=== PATIENT | male | born 1935 | race Caucasian/White ===

== ENCOUNTER 2016-12-12 20:38 | Emergency (ER) | payer OTHER ==
[2016-12-12 20:47] VITALS: PULSE 84; TEMP 98.4; O2SAT 95
[2016-12-12 21:15] VITALS: RESP 16
--- NOTE | 2016-12-12 21:30 | EDPHY ---
H & P Stated Complaint: episode of cofusion this am Source: Patient Exam Limitations: No limitations - Personal History Current Tetanus Diphtheria and Acellular Pertussis (TDAP): Unsure - Medical/Surgical History Hx Asthma: No Hx Chronic Respiratory Disease: No Hx Diabetes: No Hx Cardiac Disease: No Hx Renal Disease: No Hx Cirrhosis: No Hx Alcoholism: No Hx HIV/AIDS: No Hx Splenectomy or Spleen Trauma: No Other PMH: hypertension - Social History Smoking Status: Never smoked HPI/ROS: CHIEF COMPLAINT: confusion, difficulty with speech HISTORY OF PRESENT ILLNESS: at approximately 3:00 p.m. today, the patient notes a several minute duration of confusion. He says he had difficulty getting words out of his mouth but he was aware of this. It lasted for several minutes and resolved spontaneously. There is no headache. He has had no fever or chills. No neck pain or stiffness. No urinary complaints. No chest pain or shortness of breath. No abdominal pain. No history of TIA or stroke in the past. Does have hypertension. No diabetes. No coronary artery disease. Does not smoke. No other associated complaints or modifying factors. He is completely asymptomatic at time of my examination. REVIEW OF SYSTEMS: Ten systems reviewed and are negative unless otherwise noted in the HPI EXAMINATION General Appearance: Alert, no distress Head: normocephalic, atraumatic Eyes: Pupils equal and round, no conjunctival pallor or injection ENT, Mouth: Mucous membranes moist Neck: Normal inspection, supple, non-tender Respiratory: Lungs are clear to auscultation Cardiovascular: Regular rate and rhythm Gastrointestinal: Abdomen is soft and nontender Back: non-tender, no bony abnormalities Neurological: A&O, Cranial nerves 2-12 grossly intact. Strength is 5/5 in all extremities. No pronator drift. Negative Romberg. Showed scale is 0. Skin: Warm and dry, no rash Extremities: Non-tender, no pedal edema Psychiatric: Mood and affect normal DIFFERENTIAL DIAGNOSES: Including but not limited to TIA, stroke, the dex, confusion, dizziness, near- syncope. MDM: 21:26 Symptoms that suggest the patient had a TIA today, including expressive aphasia. The patient is completely resolved at this time. His stroke scale is 0. He has no headache. No neck pain or stiffness. No fever or chills. No chest pain shortness of breath. Completely intact neuro examination. We had a very lengthy discussion regarding the workup we recommend here, but he has respectfully declined. We did discuss risks, benefits and alternatives. He is awake and alert. He is not altered in any way. He is capable of understanding the risks and ramifications, and he is willing to accept these risks, including . He wants to be discharged home and says he will follow up with primary care physician that he will return to the emergency department should he change his mind. At this point he is more concerned about his was to be discharged home to be with her. He will be discharged home in stable condition against medical advice. He has completed an AMA form and understands the risks. SUPERVISION: This patient was independently evaluated without the aide of supervising physician. (Bill Wray) Constitutional: Initial Vital Signs Temperature (C) 36.9 C 12/12/16 20:44 Heart Rate 84 12/12/16 20:44 Respiratory Rate 20 12/12/16 20:44 Blood Pressure 188/116 H 12/12/16 20:44 O2 Sat (%) 95 12/12/16 20:44 O2 Delivery Mode Room Air Allergies/Adverse Reactions: No Known Allergies Allergy (Unverified 12/12/16 20:42) Medical Decision Making Other Provider: The patient was evaluated and managed by the physician commercial lending assistant. I have reviewed this chart and I agree with the findings and plan of care as documented , as indicated by my signature. I am the secondary supervising physician. I did speak with this patient prior to his departure from the emergency department. He reports an episode of confusion and expressive a aphasia that occurred earlier in the afternoon, at least 8 hours ago. The episode has completely resolved. He is currently asymptomatic and without complaints. He is here at the urging of a family member. However, he declines any emergency department evaluation. He was offered full evaluation of possible TIA including brain CT scan, an MRI scan of his brain, and admission for observation and further evaluation. He was persistently hypertensive while in the department. He has a history of hypertension. He refuses any evaluation in the emergency department beyond vital signs and physical examination. He understands that he is at risk of stroke. He understands that stroke can result in permanent neurologic deficit and . He is capable of making his own medical decisions. He is willing to take the risk of leaving the department. He tells me that he is making this decision because he is needed by his , who has cancer and cannot be left alone for any length of time. We discussed following up with his primary care physician and I have recommended that he call that office tomorrow morning, 1st thing. I am hopeful that he can undergo an evaluation as an outpatient. In order to do so he will need help caring for his . I have requested a case management consultation to see if there is some respite care or other help available for him. He understands that he is welcome to return to the emergency department at any time should he wish further care. (Mya Patricio) Departure - Departure Disposition: Against Medical Advice Clinical Impression: Confusion TIA (transient ischemic attack) Qualifiers: Qualifier Code: (G45.9) Transient cerebral ischemic attack, unspecified Condition: Good Instructions: Transient Ischemic Attack (ED) Additional Instructions: Recommend return to the emergency department soon as possible to complete the workup. Recommend ASA 81 mg in the meantime. Also recommend contact your primary care physician in the morning to complete the workup if you're not willing to return to the ER Referrals: Kae Shipman MD [Medical Doctor] - As per Instructions
[2016-12-12 21:47] VITALS: BP 161/108
== END 2016-12-12 21:45 | disposition left against medical advice (07) ==
DX: R41.0 Disorientation, unspecified (principal); G45.9 Transient cerebral ischemic attack, unspecified; I10 Essential (primary) hypertension

== ENCOUNTER → 2016-12-29 | Outpatient (CLI) | payer OTHER ==
--- NOTE | 2016-12-29 11:48 | US ---
Bilateral Duplex/Doppler Carotid Sonography Indication: 81-year-old man with history of transient ischemic attack and hypertension. Technique: The cervical portions of the carotid and vertebral arteries were imaged and interrogated b y color and pulsed duplex/Doppler. Spectral analysis was performed. Comparison: None. Findings: Right Carotid: Right ICA peak systolic velocity = 65 cm/sec Right CCA peak systolic velocity = 66 cm/sec Right ECA peak systolic velocity = 82 cm/sec Right ICA/CCA systolic velocity ratio = 0.98 Circumferential predominately noncalcified plaque in the right carotid bulb results in approximately 30-40% stenosis on chan-scale imaging. No ulcer. Left Carotid: Left ICA peak systolic velocity = 68 cm/sec Left CCA peak systolic velocity = 71 cm/sec Left ECA peak systolic velocity = 83 cm/sec Left ICA/CCA systolic velocity ratio = 0.96 Eccentric mixed calcified and noncalcified plaque along the posterior wall of the left carotid bulb e xtending into the origin of the internal carotid artery results in 30-40% narrowing. No ulcerated gian que. Vertebral Arteries: Antegrade flow is shown by pulsed Doppler of each vertebral artery. Impression: 1. Mild (30-40%) stenosis bilateral carotid bulbs due to mixed calcified plaque. No hemodynamically s ignificant stenosis. 2. Bilateral vertebral arteries are patent with antegrade flow. Measurement of carotid stenosis is based on velocity parameters that correlate the residual internal carotid diameter with [place] Symptomatic Carotid Endarterectomy Trial (NASCET) based stenosis levels.
== END ==
LOC: BMCIMAGING 10:47
PROVIDERS: ATTEND Internal Medicine
DX: G45.9 Transient cerebral ischemic attack, unspecified (principal)